=== PATIENT | female | born 1995 | race African-American/Black ===

== ENCOUNTER 2020-12-05 14:16 | Emergency (ER) | payer OTHER ==
[~2020-12-05] VITALS: Ht 144.8 cm; Wt 91.6 kg
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
[2020-12-05] MEDS ORDERED: NORCO 10-325 T1 EACH PO (15:58)
[2020-12-05] MEDS ORDERED: IBU800 MG PO (15:58)
[2020-12-05 16:16] VITALS: BP 129/82
== END 2020-12-05 16:16 | disposition home or self-care (01) ==
LOC: ER 14:16
DX: S80.11XA Contusion of right lower leg, initial encounter (principal); S20.211A Contusion of right front wall of thorax, initial encounter; S10.83XA Contusion of other specified part of neck, initial encounter; V49.49XA Driver injured in collision with other motor vehicles in traffic accident, initial encounter; Y93.I9 Activity, other involving external motion; Y92.89 Other specified places as the place of occurrence of the external cause; Y99.8 Other external cause status